=== PATIENT | male | born 1995 | race Two or more races ===

== ENCOUNTER 2019-04-29 21:50 | Emergency (ER) | payer SELFPAY ==
[2019-04-29] MEDS ORDERED: Tetracaine HCl/PF 0.5% 4 ML Bottle EYERT STA (22:55)
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
== END 2019-04-29 23:26 | disposition home or self-care (01) ==
LOC: MW.ED 21:50
DX: S05.11XA Contusion of eyeball and orbital tissues, right eye, initial encounter (principal); F17.210 Nicotine dependence, cigarettes, uncomplicated; W50.0XXA Accidental hit or strike by another person, initial encounter
CPT/HCPCS: 99282; 99283

== ENCOUNTER 2019-09-21 14:22 | Emergency (ER) | payer SELFPAY ==
--- NOTE | 2019-09-21 14:57 | EDM.PDOC ---
ED HPI GENERAL MEDICAL PROBLEM - General Chief Complaint: Cardiovascular Problem Stated Complaint: HYPERTENSION Time Seen by Provider: 09/21/19 14:42 Source of Information: Reports: Patient History Limitations: Reports: No Limitations - History of Present Illness INITIAL COMMENTS - FREE TEXT/NARRATIVE: Since reporting high blood pressure. The patient states that last night he had some palpitations and his blood pressure was elevated. When I queried what his blood pressure reading was he states he never checked it: "something was going last night". He states he has been told at a dental visit that he needed his blood pressure checked because it was elevated. Earlier today his arm tingled. He repeatedly looked up his symptoms on Dr. Villagran and decided to come in. No nausea, lightheadedness, shortness of breath, chest pain. Asymptomatic on admission. - Related Data Allergies Allergy/AdvReac Type Severity Reaction Status Date / Time No Known Allergies Allergy Verified 09/21/19 14:36 Home Meds: Home Meds . [No Known Home Meds] 04/29/19 [History] Past Medical History - Past Health History Medical/Surgical History: Denies Medical/Surgical History Social & Family History - Family History Family Medical History: Noncontributory - Tobacco Use Smoking Status *Q: Current Every Day Smoker Years of Tobacco use: 8 Packs/Tins Daily: 0.5 - Recreational Drug Use Recreational Drug Use: No ED ROS GENERAL - Review of Systems Review Of Systems: Comprehensive ROS is negative, except as noted in HPI. ED EXAM, GENERAL - Physical Exam Exam: See Below Exam Limited By: No Limitations General Appearance: Alert, No Apparent Distress Ears: Normal External Exam Nose: Normal Inspection Throat/Mouth: Normal Inspection Head: Atraumatic, Normocephalic Neck: Normal Inspection Respiratory/Chest: No Respiratory Distress, Lungs Clear, Normal Breath Sounds Cardiovascular: Normal Peripheral Pulses, Regular Rate, Rhythm Back Exam: Normal Inspection Extremities: Normal Inspection Neurological: Alert, Oriented, Normal Cognition Psychiatric: Normal Affect, Normal Mood Skin Exam: Warm, Dry, Intact, Normal Color, No Rash Lymphatic: No Adenopathy Course - Vital Signs Last Recorded V/S: Last Vital Signs Temp 36.1 C 09/21/19 14:33 Pulse 96 09/21/19 14:33 Resp 18 09/21/19 14:33 BP 146/60 H 09/21/19 14:33 Pulse Ox 96 09/21/19 14:33 - Orders/Labs/Meds Orders: Active Orders 24 hr Category Date Time Status EKG 12 Lead [EKG Documentation Completion] [RC] STAT Care 09/21/19 14:49 Ordered CBC WITH AUTO DIFF [HEME] Stat Lab 09/21/19 14:50 Ordered COMPREHENSIVE METABOLIC PN,CMP [CHEM] Stat Lab 09/21/19 14:50 Ordered TROPONIN I [CHEM] Stat Lab 09/21/19 14:50 Ordered Departure - Departure Time of Disposition: 16:15 Disposition: Home, Self-Care 01 Condition: Good Clinical Impression: Essential hypertension Referrals: PCP,None [Primary Care Provider] - [facility] [Outside] [facility] [Outside] Forms: ED Department Discharge Additional Instructions: The following information is given to patients seen in the emergency department who are being discharged to home. This information is to outline your options for follow-up care. We provide all patients seen in our emergency department with a follow-up referral. The need for follow-up, as well as the timing and circumstances, are variable depending upon the specifics of your emergency department visit. If you don't have a primary care physician on staff, we will provide you with a referral. We always advise you to contact your personal physician following an emergency department visit to inform them of the circumstance of the visit and for follow-up with them and/or the need for any referrals to a consulting specialist. The emergency department will also refer you to a specialist when appropriate. This referral assures that you have the opportunity for follow-up care with a specialist. All of these measure are taken in an effort to provide you with optimal care, which includes your follow-up. Under all circumstances we always encourage you to contact your private physician who remains a resource for coordinating your care. When calling for follow-up care, please make the office aware that this follow-up is from your recent emergency room visit. If for any reason you are refused follow-up, please contact the [facility] Emergency Department at and asked to speak to the emergency department charge nurse. 1. Please make and appointment in primary care and follow up on your blood pressure. Top number is elevated for someone your age. 2. Take steps now to stay healthy: lose weight, exercise daily, eat healthy. Sepsis Event Note - Evaluation Sepsis Screening Result: No Definite Risk - Focused Exam Vital Signs: Vital Signs Temp Pulse Resp BP Pulse Ox 09/21/19 14:33 36.1 C 96 18 146/60 H 96 Date Exam was Performed: 09/21/19 Time Exam was Performed: 15:12 - My Orders Last 24 Hours: My Active Orders 09/21/19 14:49 EKG 12 Lead [EKG Documentation Completion] [RC] STAT 09/21/19 14:50 CBC WITH AUTO DIFF [HEME] Stat COMPREHENSIVE METABOLIC PN,CMP [CHEM] Stat TROPONIN I [CHEM] Stat - Assessment/Plan Last 24 Hours: My Active Orders 09/21/19 14:49 EKG 12 Lead [EKG Documentation Completion] [RC] STAT 09/21/19 14:50 CBC WITH AUTO DIFF [HEME] Stat COMPREHENSIVE METABOLIC PN,CMP [CHEM] Stat TROPONIN I [CHEM] Stat
[2019-09-21 16:07] LABS: BLOOD UREA NITROGEN,BUN 14 mg/dL (7.0-18.0); CARBON DIOXIDE,CO2 27.4 mmol/L (21.0-32.0); CHLORIDE,CL 103 mmol/L (98-107); GLUCOSE RANDOM 118 mg/dL (74-106); POTASSIUM,K 3.8 mmol/L (3.5-5.1); SODIUM,NA 139 mmol/L (136-148)
== END 2019-09-21 16:25 | disposition home or self-care (01) ==
LOC: MW.ED 14:22
DX: I10 Essential (primary) hypertension (principal); F17.210 Nicotine dependence, cigarettes, uncomplicated
CPT/HCPCS: 36415; 80053; 84484; 85025; 93005; 99282; 99283-25